=== PATIENT | female | born 1980 | race Caucasian/White ===

== ENCOUNTER 2024-07-06 10:57 | Emergency (ER) | payer OTHER, SELFPAY ==
--- NOTE | ~2024-07-06 | XR_ITS ---
EXAMINATION: XR chest 2V 07/06/2024 11:12 INDICATION: Cough and fatigue PROCEDURE: 2 view chest COMPARISON: No prior studies for comparison. FINDINGS: The lungs are clear. The cardiomediastinal silhouette is within normal limits. There are no pleural effusions. There is no pneumothorax suspected. There is mild scoliosis. IMPRESSION: 1: NO ACUTE CARDIOPULMONARY DISEASE. Reviewed, dictated and finalized at location A.
[2024-07-06 11:00] VITALS: BP 136/80; PULSE 94; RESP 16; TEMP 36.8; O2SAT 100
--- NOTE | 2024-07-06 11:40 | ED.GENADULT ---
HPI - General Adult General Chief complaint: Upper Respiratory Infection Stated complaint: I think I have pneumonia. Time Seen by Provider: 07/06/24 11:18 History of Present Illness HPI narrative: This is a 43-year-old female presenting ED with concerns for pneumonia. Six days ago she developed cough and congestion. It has been getting progressively worse since then. She is now winded at rest and has 3-4 word dyspnea. She went to work this morning and she was sent home because she was sweating. Patient denies fevers, ear pain, sore throat, chest pain, difficulty breathing, abdominal pain, nausea vomiting diarrhea. She was seen in urgent care several days ago and prescribed a Z-Gadiel and a short course of steroids. Related Data Allergies Allergy/AdvReac Type Severity Reaction Status Date / Time No Known Allergies Allergy Verified 07/06/24 12:09 Exam Narrative: APPEARANCE: No apparent distress. Head: atraumatic. TMs are normal, no erythema posterior oropharynx EYES: EOMI, NOSE: Atraumatic NECK: Trachea midline RESPIRATORY: No increased rate of breathing, 3-4 word dyspnea, clear to auscultation CARDIOVASCULAR: RRR, no peripheral edema ABDOMINAL: Non-distended soft nontender MUSCULOSKELETAl: No obvious deformities NEURO: Alert. Moving 4/4 extremities SKIN:: Warm, dry. Normal color PSYCHIATRIC: Normal affect Course Vital Signs Vital signs: Vital Signs Temperature 98.3 F 07/06/24 11:00 Pulse Rate 94 07/06/24 11:00 Respiratory Rate 16 07/06/24 11:00 Pulse Oximetry 100 07/06/24 11:00 Oxygen Delivery Room Air 07/06/24 11:00 Temperature 98.3 F 07/06/24 11:00 Pulse Rate 94 07/06/24 11:00 Respiratory Rate 16 07/06/24 11:00 Pulse Oximetry 100 07/06/24 11:00 Oxygen Delivery Room Air 07/06/24 11:02 Medical Decision Making [facility] Narrative Medical decision making narrative: -Course: 43-year-old female presenting with URI symptoms. Symptoms are worsening or lack 6 days. She has some dyspnea rest although she does have clear lung sounds. Patient will be treated for community-acquired pneumonia. Given primary care follow-up. -DDX includes but is not limited to: Viral syndrome, URI, bronchitis, pneumonia Vital Signs Vital Signs: Vital Signs Temperature 98.3 F 07/06/24 11:00 Pulse Rate 94 07/06/24 11:00 Respiratory Rate 16 07/06/24 11:00 Pulse Oximetry 100 07/06/24 11:00 Oxygen Delivery Room Air 07/06/24 11:00 Temperature 98.3 F 07/06/24 11:00 Pulse Rate 94 07/06/24 11:00 Respiratory Rate 16 07/06/24 11:00 Pulse Oximetry 100 07/06/24 11:00 Oxygen Delivery Room Air 07/06/24 11:02 Discharge Plan Discharge Clinical Impression: Community acquired pneumonia Patient Disposition: Home Condition: Stable Instructions: Antibiotic Form, Community Acquired Pneumonia (DC) Additional Instructions: Please complete the antibiotics as instructed. Please follow-up with your primary care physician in 4-5 days to ensure you are improving. If you feel like your condition is getting worse, you develop chest pain shortness of breath please return to the ED for re-evaluation. Patient Language: Kyrgyz Prescriptions: New amoxicillin-pot clavulanate 875-125 mg tablet 1 tablet PO Q12H Qty: 20 0RF doxycycline hyclate 100 mg capsule 100 mg PO Q12H Qty: 20 0RF Follow-up/Referrals: PHYSICIAN,STITCHING DEPARTMENT SUPERVISOR [Non-Staff] -
--- OUTSIDE RECORDS SUMMARY | 2024-07-06 11:56 | XMS_ITS | Clinical Summary ---
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 Gender Identity Not on file Sexual Orientation Not on file Plan of Treatment Health Maintenance Due Date Last Done Comments Hepatitis C Virus (HCV) Screening 1982 Hepatitis B Immunization (1 of 3 - 19+ 3-dose series) 2001 Pap Smear 09/11/2003 Cervical Cancer Screening (CCS) 2012 HPV/Cotest 2012 Discussion re Starting/Frequ ency of Mammograms 2022 Influenza Immunization (#1) 2023 SARS-COV-2 Immunization ( season) 2023 Respiratory Syncytial Virus (RSV) Immunization (Adult) (1 - 1-dose 75+ series) 2057 DTaP/Tdap/Td Immunization Discontinued 02/27/2019 TdaP Immunization Completed 02/27/2019 Meningococcal Immunization (ACWY) Aged Out No longer eligible based on patient's age to complete this topic Pneumococcal Immunization Combined Aged Out No longer eligible b ased on patient's age to complete this topic Rotavirus Immunization Aged Out No lo nger eligible based on patient's age to complete this topic
--- OUTSIDE RECORDS SUMMARY | 2024-07-06 11:56 | XMS_ITS | Clinical Summary ---
Author Organization [facility] Address [address] [place] [address] Care Team Providers Care Sr. Consultant Name Role Phone Unavailable Primary Care Provider Unavailabl e Source Comments [facility],non-owned Affiliates and Associated Physician Practices is amultiple site organization consisting of ambulatory clinics and hospital sitesin [place], [place], [place] and [place]. This disclosure is being madepursuant to the Care Everywhere program and may not contain all information available regarding this patient. Last updated 17.[facility] [place] Allergies No known active allergies Medications Be aware that medications may not be up to date on this document. Always verify current medications with the patient. No known medications Active Problems No known active problems Immunizations Name Administration Dates Next Due TDAP (7yrs+) 02/27/2019 Family History Medical History Relation Name Comments None Known Father Diabetes - Type 2 Maternal Grandmother None Known Mother Relation Name Status Comments Father Alive Maternal Grandmother Mother Alive Social History Tobacco Use Types Packs/Day Years Used Date Smoking Tobacco: Former Cigarettes Q uit: 2009 Smokeless Tobacco: Never Alcohol Use Standard Drinks/Week Comments Yes 0 (1 standard drink = 0.6 oz pur e alcohol) socially Sex and Gender Information Value Date Recorded Sex Assigned at Not on file Gender Identity Not on file Sexual Orientation Not on file Last Filed Vital Signs Vital Sign Reading Time Taken Comments Blood Pressure 128/80 10/16/2020 9:40 AM CDT Pulse 98 10/16/2020 9:40 AM CDT Temperature 36.8 C (98.3 F) 10/16/2020 9:40 AM CDT Respiratory Rate 20 10/16/2020 9:40 AM CDT Oxygen Saturation 97% 10/16/2020 9:40 AM CDT Inhaled Oxygen Concentration - - Weight 103.9 kg (229 lb) 10/16/2020 9:40 AM CDT Height 170.2 cm (5' 7 ) 10/16/2020 9:40 AM CDT Body Mass Index 35.87 10/16/2020 9:40 AM CDT Plan of Treatment Health Maintenance Due Date Last Done Comments LIPID TESTING 1982 MAMMOGRAM 1982 PAP SMEAR 1982 HIV SCREENING 1997 HEPATITIS C SCREENING 09/05/2000 HEPATITIS B VACCINE (1 of 3 - 19+ 3-dose series) 2001 COVID-19 VACCINE (2023-2 5 season) 2023 08/05/2020, 07/13/2020 DEPRESSION SCREENING 03/28/2024 INFLUENZA VACCINE (Season Ended) 2024 DTAP/TDAP/TD VACCINES (2 - T d or Tdap) 02/27/2029 02/27/2019 ZOSTER VACCINE (1 of 2) 2032 HIB VACCINE Aged Out No longer eligi ble based on patient's age to complete this topic HPV VACCINE Aged Out No longer eligi ble based on patient's age to complete this topic MENINGOCOCCAL (Group B) VACCINE SHARED DECISION-MAKING Aged Out No longer eligible based on patient's age to complete this topic MENINGOCOCCAL GROUPS A/C/Y/W VACCINE Aged Out No longer eligible b ased on patient's age to complete this topic PNEUMOCOCCAL VACCINE Aged Out No long er eligible based on patient's age to complete this topic
--- OUTSIDE RECORDS SUMMARY | 2024-07-06 11:56 | XMS_ITS | Continuity of Care Document ---
Author Organization [facility] Address [address] [place] [address] Phone Care Team Providers Care Room Clerk Name Role Phone Gordon Goddard MD Unavailable Unavailable Advance Directives Directive Yes / No Effective Date File Name No Information Encounters Encounter Description Practice Location Reason(s) For Visit Diagnoses Date Provider Providers Copied on Encounter [facility], [address], [place], [place], [id number], tel:[phone] [facility] No Information Nitza Leyva. [address] [place], [place], [id number], . tel:[phone] [facility], [address], [place], [place], [address], [place] tel:[phone] [facility] No Information [facility]. [address], [place], [address], [place]. tel:[phone] [facility], [address], [place], [place], [address], [place] tel:[phone] [facility] ROUTINE MEDICAL EXAM Meme Eldridge. [address], [address], [place], [place], [address]. tel:[phone] [facility], [address], [place], [place], [address], [place] tel:[phone] [facility] ABDMNAL PAIN UNSPCF SITE Meme Eldridge. [address], [address], [place], [place], [address]. tel:[phone] [facility], [address], [place], [place], [address], [place] tel:[phone] [facility] NEED PRPHYL VC VRL HEPAT Meme Eldridge. [address], [address], [place], [place], [address]. tel:[phone] [facility], [address], [place], [place], [address], tel:[phone] [facility] ATTN DEFIC NONHYPERACT [facility]. [address], [place], [address], [place]. tel:[phone] Family History Family Member Type Diagnosis Age At Onset No Information Immunizations Vaccine Date Status Comments 33408 - Hepatitis_B administered Source: Source Unspecified Payers Payer name Insurance type Covered constitution party ID Authoriza tion(s) No Information Social History Type Description Quantity Date Captured Comments Sex Female Smoking Status No Information Chief Complaint And Reason For Visit No Information Reason For Referral Reason For Referral No Information History Of Present Illness Encounter Date Complaint History Of Prese nt Illness No Information Functional Status Date Functional Assessmen t No Information Instructions Date Instruction Additional Infor mation No Information Assessments Type Assessment Date No Information Patient Care Teams Name Effective Dates (start - stop) Status Members No Information
--- OUTSIDE RECORDS SUMMARY | 2024-07-06 11:56 | XMS_ITS | Encounter Summary ---
Author Organization [facility] [address] [place] [address] Care Team Providers Care Marble Mechanic Helper Name Role Phone Unavailable Primary Care Provider Unavailabl e Encounter Details Date Type Department Care Team (Late st Contact Info) Description 10/20/2020 Telephone [facility] [address], [address] [place] [address] Shukri Santillan, MMD UNIT TEACHER-COMPUTER AIDED DRAFTER [address] [place] [phone] Social History Tobacco Use Types Packs/Day Years Used Date Smoking Tobacco: Former Cigarettes Q uit: 2010 Smokeless Tobacco: Never Alcohol Use Standard Drinks/Week Comments Yes 0 (1 standard drink = 0.6 oz pur e alcohol) socially Sex and Gender Information Value Date Recorded Sex Assigned at Not on file Gender Identity Not on file Sexual Orientation Not on file COVID-19 Exposure Response Date Recorded In the last month, have you been in contact with someone who was confirmed or suspected to have Coronavirus / COVID-19? Unable to assess 10/16/2020 9:24 AM CDT documented as of this encounter Plan of Treatment Not on file documented as of this encounter Visit Diagnoses Not on filedocumented in this encounter
[2024-07-06] MEDS: SODIUM CHLORIDE 0.9% IV 1,000 ML 999 ML IV CONT (12:11)
[2024-07-06] MEDS: KETOROLAC 15 MG/ML VIAL (*BKC) IV PUSH (12:11)
[2024-07-06 12:21] VITALS: BP 130/76; PULSE 86; RESP 18; TEMP 36.6; O2SAT 98
[2024-07-06 12:26] LABS: Basophils Percent Auto 0.1 % (0.2-1.2); Eosinophils Percent Auto 0.1 % (0-4.4); Immature Granulocyte Absolute 0.03 K/mm3 (0.00-0.031); Immature Granulocyte Percent A 0.3 % (0-0.5); Lymphocytes Absolute Auto 0.62 K/mm3 (0.9-3.2); Lymphocytes Percent Auto 7.2 % (18.3-44.2); Mean Corpuscular HGB Conc 33.3 g/dl (32-36); Mean Corpuscular Hemoglobin 30.2 pg (26-34); Mean Corpuscular Volume 90.5 fl (80-100); Mean Platelet Volume 11.1 fl (7.4-10.4); Monocytes Absolute Auto 0.2 K/mm3 (0.1-0.6); Monocytes Percent Auto 2.8 % (2.6-8.5); Neutrophils Absolute Auto 7.7 K/mm3 (1.3-6.7); Neutrophils Percent Auto 89.5 % (45.5-73.1); Platelet Count Result 215 k/mm3 (150-375); Red Blood Count 4.64 M/mm3 (4.2-5.4); Red Cell Distribution Width 12.5 % (11.5-14.5); White Blood Count 8.6 K/mm3 (4.5-10.0)
[2024-07-06 12:35] LABS: Alanine Aminotransferase 25 U/L (6-35); Albumin Level 4.5 g/dL (3.5-5.1); Alkaline Phosphatase 54 U/L (38-126); Anion Gap 11 mmol/L (4-12); Aspartate Amino Transferase 24 U/L (14-36); Bilirubin,Total 0.6 mg/dL (0.2-1.3); Blood Urea Nitrogen 15 mg/dL (7-17); Calcium 9.4 mg/dL (8.4-10.2); Carbon Dioxide 22 mmol/L (22-30); Chloride 104 mmol/L (98-107); Estimated Glomerular Filt Rate > 60; Glucose 111 mg/dL (65-110); Potassium 4.3 mmol/L (3.4-5.0); Sodium 137 mmol/L (137-145)
[2024-07-06 12:57] LABS: Influenza A QL RT-PCR Negative (Negative); Influenza B QL RT-PCR Negative (Negative); RSV RNA, RT-PCR Negative (Negative); SARS-CoV-2 RNA PCR Negative (Negative)
[2024-07-06 13:05] VITALS: BP 132/76; PULSE 84; RESP 16; TEMP 36.6; O2SAT 100
[2024-07-06] MEDS: DOXYCYCLINE HYCLATE 100 MG TABLET PO (13:16)
[2024-07-06] MEDS: AMOXICILLIN/CLAVULANATE K 875-125 MG TAB 1 TABLET PO (13:16)
== END 2024-07-06 13:20 | disposition home or self-care (01) ==
PROVIDERS: Emergency Provider Emergency Medicine
DX: J18.9 Pneumonia, unspecified organism (principal); Z20.822 Contact with and (suspected) exposure to COVID-19
CPT/HCPCS: 36415; 71046; 80053; 85025; 87637; 96361; 96374; 99284; A9270; J1885; J7030